=== PATIENT | female | born 1950 | race Caucasian/White ===

== ENCOUNTER → 2021-01-09 | Outpatient (CLI) | payer MEDICARE, OTHER ==
[~2021-01-09] MED LIST: ASPIRIN EC81 MG PO; BRILINTA 90 MG90 MG PO; COZAAR 50MG TAB50 MG PO; CRESTOR40 MG PO; LASIX20 MG PO; LOPRESSOR 25 MG25 MG PO; NICOTINE PATCH1 EAC2 TD; NITROGLYCERIN0.4 MG SL; NORVASC10 MG PO; SYNTHROID25 MCG PO; TOPROL XL25 MG PO; ZETIA 10 MG TAB10 MG PO
== END ==
LOC: ECHO 12-29 11:00
DX: I25.10 Atherosclerotic heart disease of native coronary artery without angina pectoris (principal); I10 Essential (primary) hypertension; E78.00 Pure hypercholesterolemia, unspecified; I25.5 Ischemic cardiomyopathy; I42.0 Dilated cardiomyopathy; I34.0 Nonrheumatic mitral (valve) insufficiency; I07.1 Rheumatic tricuspid insufficiency; I37.1 Nonrheumatic pulmonary valve insufficiency
CPT/HCPCS: ECHO; 36415; 80061; 93306